=== PATIENT | male | born 1960 | race Caucasian/White ===

== ENCOUNTER 2017-08-01 08:06 | Outpatient (CLI) | payer BC ==
--- NOTE | 2017-08-01 11:08 | MRI ---
MRI LUMBAR SPINE WITHOUT CONTRAST: Date: 08/01/17 HISTORY: Lumbar radiculopathy. Right ankle pain. Pain radiating down right thigh. COMPARISON: None. TECHNIQUE: MRI lumbar spine is performed without intravenous Gadolinium administration. Multisequential, multipl jordi imaging is performed. FINDINGS: Appropriate T1 marrow signal intensity of the lumbar vertebra. Lumbar spine vertebral body height is maintained. There is no fracture. No significant STIR hyperintensity to suggest edema from fracture. Type I and Type II Modic changes along the inferior end plate of L3, inferior end plate of L4, superi or end plate of L5, and the L5-S1 disc space. Symmetric signal intensity of the psoas muscles. Appropriate signal intensity of the visualized solid organs. Conus medullaris terminates at the mid T12 level. T12-L1: Minimal right paracentral disc bulge. No significant central canal stenosis. Neural foramina are baxter nt bilaterally. L1-L2: Adequate disc hydration. No significant posterior disc abnormality. No significant central canal sten osis. Neural foramina are patent bilaterally. L2-L3: Mild loss of disc space height. Generalized disc bulge does cause some narrowing of the right subarti cular zone. Disc material abuts, but does not obscure the traversing right L3 nerve root. Left subart icular zone is unremarkable. Minimal central canal stenosis. Mild bilateral foraminal narrowing. L3-L4: Moderate loss of disc space height. There is a generalized disc bulge. Disc material encroaches upon both subarticular zones. Mass effect without obscuration of either traversing L4 nerve root. Overall, mild central canal stenosis. Moderate bilateral foraminal narrowing. L4-L5: Desiccation with moderate loss of disc space height. Generalized disc bulge is noted. There is narrow ing of both subarticular zones. Mild narrowing of the left subarticular zone. Overall, mild central c anal stenosis. Mild right and moderate left foraminal narrowing. L5-S1: Desiccation with mild loss of disc space height. No high grade central canal stenosis. Mild bilateral foraminal narrowing. IMPRESSION: Degenerative changes of lumbar spine as detailed above. POS: [facility]
== END 2017-08-01 08:07 | disposition home or self-care (01) ==
LOC: TBSIIMAG 08:06
PROVIDERS: ATTEND Anesthesiology Pain Medicine
DX: M47.26 Other spondylosis with radiculopathy, lumbar region (principal)
CPT/HCPCS: 72148

== ENCOUNTER 2020-01-14 06:27 | Outpatient (CLI) | payer BC, OTHER ==
[2020-01-14 16:24] LABS: Hemoglobin 14.4 g/dL (14.0-18.0); Mean Corpuscular HGB CONC 33.3 g/dL (32.0-36.0); Mean Corpuscular Hemoglobin 28.8 pg (27.0-31.0); Mean Corpuscular Volume 86.4 fL (78.0-98.0); Platelet Count 222 thou/uL (130-400); RBC Distribution Width 13.1 % (11.5-14.5); Red Blood Cell (RBC) Count 4.99 mill/uL (4.70-6.10); White Blood Cell (WBC) Count 6.5 thou/uL (4.8-10.8)
[2020-01-14 17:04] LABS: Anion Gap 16 mmol/L (10-20); BUN (Urea Nitrogen) 15 mg/dL (8.4-25.7); Calc. Creatinine Clearance 0 mL/min (70-130); Calcium 9.3 mg/dL (7.8-10.44); Carbon Dioxide 21 mmol/L (22-29); Chloride 107 mmol/L (98-107); Estimated GFR-MDRD 70; Glucose 88 mg/dL (70-105); Potassium 4.9 mmol/L (3.5-5.1); Sodium 139 mmol/L (136-145)
[2020-01-15 14:48] LABS: SARS-CoV-2 MS2 Positive; SARS-CoV-2 N Gene Negative; SARS-CoV-2 S Gene Negative; SARS-CoV-2 by NAA Not Detected (NotDetected); SARS-CoV-2 orf1ab Negative
== END 2020-01-14 06:28 | disposition home or self-care (01) ==
LOC: LABBT 06:27
PROVIDERS: ATTEND Neurological Surgery
DX: Z01.812 Encounter for preprocedural laboratory examination (principal); Z20.828 Contact with and (suspected) exposure to other viral communicable diseases; M54.16 Radiculopathy, lumbar region
CPT/HCPCS: 80048; 85027; 87635; U0003

== ENCOUNTER 2020-01-19 05:44 | Day surgery (SDC) | payer BC ==
[2020-01-17 14:13] VITALS: BMI 28.2
--- NOTE | 2020-01-18 21:35 | HP ---
HISTORY OF PRESENT ILLNESS: Mr. Tuttle is a pleasant 59-year-old man, here today to discuss lower back pain with right lower extremity radicular pattern of pain, the best with some L5 pattern. I saw this for many months and has actually seen a surgeon already, Dr. Newton, who recommended decompression, but he is out of network. He attempted physical therapy, Lyrica, as well as epidural steroid injection, but all of these only provided marginal temporary relief. MRI and disk outside facility reveals severe lateral recess stenosis secondary to disk osteophyte complex at L4-L5 on the right, this fits his symptoms well. PHYSICAL EXAMINATION: GENERAL: He is alert and oriented x3. MUSCULOSKELETAL: Gait is normal with no ataxia. Lower extremity exam is normal. Negative straight leg raise. PAST MEDICAL HISTORY: Significant for osteoarthritis, hypertension, BPH, coronary arterial disease, and diabetes. CURRENT MEDICATIONS: 1. Ezetimibe. 2. Losartan. 3. Plavix. 4. Potassium. 5. Tamsulosin. 6. Lyrica. ALLERGIES: NO KNOWN DRUG ALLERGIES. PAST SURGICAL HISTORY: Unspecified ankle, cardiac stent, unspecified laterality rotator cuff, unspecified laterality hip replacement. ASSESSMENT: Lumbar radiculopathy. PLAN: Dr. Nixon met with the patient, reviewed imaging, advocated for right L4-L5 decompression. He explained the patient risks, benefits, and alternatives to the procedure. The patient expressed understanding, elected to move forward with surgery as discussed. I do believe the patient is mentally competent and capable of making medical decisions for himself. We will move forward with surgery as planned. Job ID: [id number]
[2020-01-19] MEDS ORDERED: EPINEPHrine 1 MG/ML AMP ONE (05:58)
[2020-01-19] MEDS ORDERED: Bupivacaine PF 0.5% 30 ML VIAL ONE (05:58)
[2020-01-19] MEDS ORDERED: Thrombin 5000 UNITS/5 ML VIAL ONE (05:58)
[2020-01-19] MEDS ORDERED: Albuterol Sulfate HFA (OR ONLY) ONE ×2 (06:44→15:11)
[2020-01-19] MEDS ORDERED: Fentanyl 100 MCG/2 ML VIAL ONE ×3 (06:44→08:55)
[2020-01-19] MEDS ORDERED: Famotidine/PF 20 mg/2ml Vial ONE (06:44)
[2020-01-19] MEDS ORDERED: Midazolam HCl 2 mg/2 ml Vial ONE (06:51)
[2020-01-19] MEDS ORDERED: SUGAMMADEX SODIUM 200 MG/2 ML VIAL ONE (07:53)
--- NOTE | 2020-01-19 08:05 | OP ---
DATE OF PROCEDURE: 01/19/2020 SENIOR PAYROLL ADMINISTRATOR: Jaylon Dominguez PA-C INDICATION: Pain. DIAGNOSIS: Lateral recess stenosis with lumbar radiculopathy. PROCEDURE PERFORMED: Right L4-L5 decompression. ANESTHESIA: General. DESCRIPTION OF PROCEDURE: The patient was brought into the operating room and placed under general anesthesia. He was flipped from a supine to prone position on the operating room table. A linear incision was planned over L4-L5. After prepping and draping and after an appropriate preoperative pause, the incision was created. The soft tissues were swept away from midline. A self-retaining retractor was placed. After confirming the appropriate level with C-arm fluoroscopy, high-speed cutting drill bit as well as 2, 3, and 4 mm Kerrisons were used to perform a laminectomy along the inferior aspect of L4 and the superior aspect of L5. The laminectomy was extended laterally to encompass the medial 3rd of the facet joint in order to adequately decompress the lateral recess and therefore, the descending L5 nerve root. After completing the decompression, the wound was irrigated. Hemostasis was maintained throughout. The wound was then closed in anatomic layers, and a pressure dressing was applied. There were no known procedural complications. Job ID: [id number]
[2020-01-19] MEDS ORDERED: Tamsulosin HCl 0.4 MG CAP ONE (08:42)
[2020-01-19] MEDS ORDERED: HYDROcodone/Acetaminophen 5/325 mg Tablet ONE (09:48)
[2020-01-19] MEDS ORDERED: Dexamethasone 20 MG/5 ML VIAL ONE (15:11)
[2020-01-19] MEDS ORDERED: Ondansetron PF 4 MG/2 ML Vial ONE (15:11)
[2020-01-19] MEDS ORDERED: Lidocaine 1% PF 5 ML VIAL ONE (15:11)
[2020-01-19] MEDS ORDERED: PHENYLEPHRINE-NS 100 MCG/ML 10 ML SYRINGE ONE (15:11)
[2020-01-19] MEDS ORDERED: Metoclopramide HCl 10 MG/2 ML VIAL ONE (15:11)
[2020-01-19] MEDS ORDERED: Ketorolac Tromethamine 30 MG/ML VIAL ONE (15:11)
[2020-01-19] MEDS ORDERED: Rocuronium Bromide 10 MG/ML (10ML VIAL) ONE (15:11)
[2020-01-19] MEDS ORDERED: PROPOFOL 200 MG/20 ML VIAL ONE (15:11)
== END 2020-01-19 10:37 | disposition home or self-care (01) ==
LOC: SDC 05:44
PROVIDERS: ATTEND Neurological Surgery
PROC: 00NY0ZZ Release Lumbar Spinal Cord, Open Approach (ICD-10-PCS; principal; 2020-01-19)
DX: M48.061 Spinal stenosis, lumbar region without neurogenic claudication (principal); M54.16 Radiculopathy, lumbar region; I10 Essential (primary) hypertension; I25.10 Atherosclerotic heart disease of native coronary artery without angina pectoris; E11.9 Type 2 diabetes mellitus without complications; N40.0 Benign prostatic hyperplasia without lower urinary tract symptoms; M19.90 Unspecified osteoarthritis, unspecified site; Z79.02 Long term (current) use of antithrombotics/antiplatelets; Z79.82 Long term (current) use of aspirin; Z79.899 Other long term (current) drug therapy
CPT/HCPCS: 76000; J0171; J0690; J1100; J1885; J2250; J2405; J2704; J2765; J3010; S0020; S0028

== ENCOUNTER 2020-12-13 14:16 | Outpatient (CLI) | payer BC ==
[2020-12-13 15:00] LABS: Bilirubin Neg (Negative); Blood, Urine Negative (Negative); Clarity Clear (Clear); Glucose, Urine (Dipstick) Normal (Negative); Ketone, Urine Negative (Negative); Leukocyte Negative (Negative); Nitrite Negative (Negative); Protein, Urine (Dipstick) 30 mg/dl (Neg-Trace); Urobilinogen Normal mg/dL (Less than 2)
[2020-12-13 15:31] LABS: #Basophils 0.1 10x3/uL (0.0-0.2); #Eosinphils 0.3 10x3/uL (0.0-0.5); #Monocytes 0.9 10x3/uL (0.0-1.1); #Neutrophils 4.8 10x3/uL (1.5-8.4); %Basophils 0.9 % (0.0-2.0); %Eosinophils 3.8 % (0.0-6.0); %Lymphocytes 24.7 % (18.0-47.0); %Monocytes 10.8 % (0.0-10.0); %Neutrophils 59.6 % (40.0-75.0); Hemoglobin 14.8 g/dL (13.5-17.5); Mean Corpuscular HGB CONC 32.5 g/dL (32.0-36.0); Mean Corpuscular Hemoglobin 27.7 pg (27.0-33.0); Mean Corpuscular Volume 85.2 fl (81.2-95.1); Mean Platelet Volume 10.6 fl (7.4-10.4); Platelet Count 289 10x3/uL (150-450); RBC Distribution Width 13.3 % (11.5-14.5); Red Blood Cell (RBC) Count 5.34 10x6/uL (4.32-5.72); White Blood Cell (WBC) Count 8.1 10x3/uL (3.5-10.5)
[2020-12-13 15:42] LABS: Bacteria/HPF None Seen HPF (None Seen); Mucous/LPF 1+ LPF (<2+); RBC/HPF 0-3 HPF (0-3); Squamous Epithelial 0-3 HPF (0-3); WBC/HPF 0-3 HPF (0-3)
[2020-12-13 15:54] LABS: Prothrombin Time 10.8 sec (9.5-12.1)
[2020-12-13 15:56] LABS: Anion Gap 16 mmol/L (10-20); BUN (Urea Nitrogen) 21 mg/dL (8.4-25.7); Calc. Creatinine Clearance 0 mL/min (70-130); Calcium 10.3 mg/dL (7.8-10.44); Carbon Dioxide 24 mmol/L (23-31); Chloride 106 mmol/L (98-107); Glucose 86 mg/dL (80-115); Potassium 5.6 mmol/L (3.5-5.1); Sodium 140 mmol/L (136-145)
[2020-12-14 08:02] LABS: SARS-CoV-2 PCR by NAA Not Detected (NotDetected)
== END 2020-12-13 14:17 | disposition home or self-care (01) ==
LOC: LABBT 14:16
PROVIDERS: ATTEND Otolaryngology Otolaryngic Allergy
DX: Z01.818 Encounter for other preprocedural examination (principal); M16.11 Unilateral primary osteoarthritis, right hip; Z20.822 Contact with and (suspected) exposure to COVID-19
CPT/HCPCS: 80048; 81001; 85025; 85610; 87081; 93005; 93010; U0003; U0005